=== PATIENT | male | born 1985 | race Caucasian/White ===

== ENCOUNTER 2020-02-16 07:35 | Emergency (ER) | payer OTHER ==
[~2020-02-16] VITALS: Ht 177.8 cm; Wt 82.0 kg
[2020-02-16] MEDS ORDERED: DEXAMETHASONE 4 MG/ML, 1ML ONE (08:18)
--- NOTE | 2020-02-16 08:20 | NUR ---
FIRST CONTACT WITH PT. PT DX STREP THROAT 5 DAYS AGO AND NOT GETTING BETTER. TAKING AZITHROMYCIN. PT'S AOX4. RESPS EVEN AND UNLABORED. 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 ALL MONITORS IN PLACE. CALL LIGHT WITHIN REACH. PA AT BEDSIDE TO EVALUATE AT THIS TIME.
[2020-02-16 08:25] LABS: MEAN CORPUSCULAR HEMOGLOBIN 31.8 pg (27.5-34.5); MEAN CORPUSCULAR HGB CONC 33.5 g/dL (33.2-36.2); MEAN PLATELET VOLUME 7.3 fL (7.4-10.4); PLATELET COUNT 363 x10^3/uL (130-400); RED BLOOD COUNT 4.97 x10^6/uL (4.38-5.82); RED CELL DISTRIBUTION WIDTH 12.9 % (9.4-14.8)
--- NOTE | 2020-02-16 08:26 | NUR ---
PT MEDICATED PER EMAR. PT TOLERATED WELL.
--- NOTE | 2020-02-16 08:26 | NUR ---
PIV EST ON R AC WITH NO COMPLICATIONS. NS BOLUS INFUSING AT THIS TIME.
[2020-02-16] MEDS ORDERED: DEXAMETHASONE 4 MG/ML, 1ML PO ONE (08:30)
[2020-02-16] MEDS ORDERED: SODIUM CHLORIDE 0.9% 1,000ML IVBOLUS ONE (08:30)
[2020-02-16] MEDS ORDERED: ACETAMINOPHEN 650 MG SUPP PR ONE (08:30)
--- NOTE | 2020-02-16 08:33 | NUR ---
PT IN CT
[2020-02-16] MEDS ORDERED: ACETAMINOPHEN 650 MG SUPP ONE (08:35)
[2020-02-16 08:42] LABS: MD YES
--- NOTE | 2020-02-16 08:42 | NUR ---
pt back to room from ct at this time.
--- NOTE | 2020-02-16 08:49 | NUR ---
PT MEDICATED PER EMAR. PT TOLERATED WELL.
[2020-02-16 08:51] LABS: LYMPH#(MANUAL) 4.22 x10^3/uL (1-3.4); LYMPHS% (MANUAL) 22 % (22-44); MONOS#(MANUAL) 3.07 x10^3/uL (0.3-2.7); MONOS% (MANUAL) 16 % (2-9); SEGS% (MANUAL) 62 % (42-75)
[2020-02-16 08:53] LABS: <PLATELET ESTIMATE> ADEQUATE; <PLT MORPHOLOGY> NORMAL PLT MORPH; <RBC MORPHOLOGY> NORMAL
[2020-02-16] MEDS ORDERED: OMNIPAQUE 350 MG/ML, 100ML BOTTLE ONE (08:53)
[2020-02-16 09:11] LABS: ANION GAP 11 mmol/L (5-15); CALCIUM 9.8 mg/dL (8.5-10.1); CHLORIDE 111 mmol/L (98-107); CREATININE 1.02 mg/dL (0.7-1.3)
[2020-02-16 09:15] LABS: ALBUMIN 3.4 g/dL (3.4-5.0)
--- NOTE | 2020-02-16 09:42 | NUR ---
EDMD AT BEDSIDE TO EXPLAIN ALL RESULTS AT THIS TIME.
[2020-02-16 10:14] VITALS: BP 145/92
--- NOTE | 2020-02-16 10:20 | NUR ---
Patient given discharge instructions and they have confirmed that they understand the instructions. Patient ambulatory with steady gait.
== END 2020-02-16 10:21 | disposition home or self-care (01) ==
LOC: MERGE 07:35 → ED 08:15
DX: J02.0 Streptococcal pharyngitis (principal); F17.210 Nicotine dependence, cigarettes, uncomplicated
CPT/HCPCS: 36415; 70491; 80048; 82040; 83880; 85025; 86308; 99285; J1100; J7030; Q9967